=== PATIENT | male | born 1960 | race Caucasian/White ===

== ENCOUNTER 2021-10-08 23:30 | Emergency (ER) | payer BC, SELFPAY ==
--- NOTE | ~2021-10-08 | XR_ITS ---
EXAMINATION: XR chest 2V, XR shoulder RT min 2V DATE: 10/09/2021 00:37 INDICATION: Right shoulder and chest wall pain post fall down a flight of stairs TECHNIQUE: 1. PA and lateral views of the chest were obtained. 2. AP internally rotated, AP externally rotated, Grashey and transscapular Y views of the right shoul debbi were obtained. COMPARISON: None FINDINGS: Chest: The lungs are clear with no focal airspace opacities, pulmonary edema, pleural effusion or pneumothor ax. The cardiomediastinal silhouette is normal. Moderate thoracic spondylosis. Right shoulder: Comminuted extra-articular fracture of the lateral right clavicle. There is cephalad elevation of the site of the clavicular fracture resulting in 50 degree apex cephalad angulation of the the largest c lavicular fragment and several fragments comprising the lateral aspect of the clavicle. There are cou ple additional fracture fragments comprising the caudal cortex of the lateral clavicle at the site of attachment of the coracoclavicular ligament which remains nondisplaced relative to the coracoid proc ess. These are by approximately 2 cm from the donor site along the elevated lateral side of the main clavicular fragment. There is mild angulation of the articular surface of the lateral head of the clavicle relative to the acromion resulting from the displacement and angulation of the fractu re but without abnormal widening or francis subluxation of the joint space. No other fractures identifi ed. Glenohumeral joint is normal. IMPRESSION: 1. Displaced and angulated comminuted extra articular fracture of the lateral right clavicle. 2. No acute cardiopulmonary disease. Reviewed, dictated and finalized at location A. IMPRESSION: 1. Displaced and angulated comminuted extra articular fracture of the lateral r ight clavicle. 2. No acute cardiopulmonary disease.
--- NOTE | ~2021-10-08 | CT_ITS ---
EXAMINATION: CT BRAIN W/O DATE: 10/09/2021 00:53 INDICATION: Status post fall down flight of stairs. Head injury. TECHNIQUE: Computed tomography (CT) of the head was performed without intravenous contrast. The dose- length product was 681.00 mGy-cm. Automated exposure control and iterative reconstruction technique w ere employed. COMPARISON: No prior studies for comparison. FINDINGS: Normal brain parenchymal volume for age. Normal miranda-white differentiation. No acute intrac ranial hemorrhage, infarction, mass or mass effect. No ventriculomegaly or midline shift. Midline sagittal images demonstrate a normal corpus callosum, c raniovertebral junction and sella turcica. Basilar cisterns are patent. Paranasal sinuses and mastoids are pneumatized. No depressed skull fractures. Mild right frontal jayshree etal scalp swelling. IMPRESSION: 1. No acute intracranial abnormality. Reviewed, dictated and finalized at location A.
--- NOTE | ~2021-10-08 | CT_ITS ---
EXAMINATION: CT cervical spine wo con DATE: 10/09/2021 00:55 INDICATION: Unwitnessed fall. Neck pain. TECHNIQUE: Computed tomography (CT) of the cervical spine was performed without intravenous contrast. The dose-length product was 450 mGy-cm. Automated exposure control and iterative reconstruction tech nique were employed. COMPARISON: None FINDINGS: There is straightening of cervical lordosis, likely due to muscle spasm or positioning. The re is moderate degenerative disc disease at C5-6, C6-7 and C7-T1. No acute fracture, subluxation or d islocation. Vertebral body heights are maintained. No paraspinal soft tissue abnormality. Cranioverte bral junction is normal. No evidence for perched facet. There is moderate multilevel uncinate and fac et hypertrophy. Lung apices are normal. No significant paraspinal soft tissue abnormality. IMPRESSION: 1. No acute abnormality of the cervical spine. Reviewed, dictated and finalized at location A.
--- NOTE | 2021-10-08 23:40 | ED.GENADULT ---
HPI - General Adult General Chief complaint: Trauma Stated complaint: fell down a flight of stairs, rt side pain, head Time Seen by Provider: 10/08/21 23:33 History of Present Illness HPI narrative: 61-year-old male presenting to the emergency department for evaluation after having a fall down a flight of stairs. Patient states that he did have multiple glasses of wine over the course of the day. Patient was walking downstairs and stumbled causing the fall. Patient did strike his head. Patient denies any loss of consciousness. Patient is amnestic to the fall. Patient has been complaining of some right shoulder pain and some right-sided rib pain. Upon arrival to the emergency department patient is only complaining of headache and right shoulder pain. Patient does have a history of high blood pressure. Patient reports that a few weeks ago he did have a concussion and has been taking Aleve for that head injury. Related Data Allergies Allergy/AdvReac Type Severity Reaction Status Date / Time Sulfa (Sulfonamide AdvReac Unknown Verified 10/08/21 23:52 Antibiotics) Review of Systems Review of Systems: CONSTITUTIONAL: Denies fever, chills, or sweats. EYES: Denies visual changes, redness, or discharge. ENT: Denies rhinorrhea, congestion, sore throat, or otalgia. CARDIOVASCULAR: Did have some right-sided chest wall pain RESPIRATORY: Denies cough or dyspnea. GASTROINTESTINAL: Denies abdominal pain, nausea, vomiting, or diarrhea. GENITOURINARY: Denies dysuria or hematuria. SKIN: Denies rash or itching. MUSCULOSKELETAL: Complains of right shoulder pain NEUROLOGIC: Headache but denies any associated numbness or weakness. Exam Narrative: APPEARANCE: Well appearing, no pain, no distress, well-nourished. HEAD: normocephalic, atraumatic. Tenderness to the left side of scalp EYES: PERRLA/EOMI, conjunctivae clear. NOSE: Normal no drainage THROAT: Pharynx clear, no exudate. NECK: Supple. No adenopathy, no masses. RESPIRATORY: Airway patent, respirations nonlabored. Clear to auscultation bilaterally, no rales, rhonchi, wheezing. CARDIOVASCULAR: Regular rate and rhythm without murmurs rubs or gallops. No chest wall tenderness to palpation ABDOMINAL: Soft, nontender, nondistended, normal bowel sounds MUSCULOSKELETAL: Moves all extremities. Strength/ROM intact, No edema, No calf tenderness. Some right shoulder tenderness to palpation at AC joint. Normal range of motion of shoulder NEURO: Alert. Cranial nerves II through XII intact. Grossly intact. SKIN: Warm, dry. Normal Color Course Course Emergency Course: Initially a wrong x-ray was loaded up for chest and shoulder. Family had initially told that the x-ray was negative. Upon reading the patient's actual shoulder x-rays they were informed on his right clavicle fracture. No rib fractures were observed. On reexamination patient is more alert and appropriate. Patient continues to have no abdominal tenderness to palpation. Patient denies any complaints other than pain at the clavicle. Patient was able to ambulate at his baseline. Patient and family were comfortable with the plan for discharge and follow-up. Family is from [place] and they will follow-up with a orthopedic physician locally. All question concerns were addressed. Patient was well-appearing at time of discharge from the emergency department. Vital Signs Vital signs: Vital Signs Pulse Rate 77 10/08/21 23:43 Respiratory Rate 24 H 10/08/21 23:43 Blood Pressure 128/73 10/08/21 23:43 Pulse Oximetry 97 10/08/21 23:43 Oxygen Delivery Room Air 10/08/21 23:43 Pulse Rate 88 10/09/21 02:31 Respiratory Rate 18 10/09/21 02:31 Blood Pressure 133/76 10/09/21 02:31 Pulse Oximetry 97 10/09/21 02:31 Oxygen Delivery Room Air 10/08/21 23:43 Medical Decision Making Vital Signs Vital Signs: Vital Signs Pulse Rate 77 10/08/21 23:43 Respiratory Rate 24 H 10/08/21 23:43 Blood Pressure 128/
[2021-10-08 23:43] VITALS: BP 128/73; PULSE 77; RESP 24; O2SAT 97
[2021-10-08 23:50] VITALS: PULSE 81
[2021-10-09] MEDS: IBUPROFEN 600 MG TABLET PO (02:18)
[2021-10-09 02:31] VITALS: BP 133/76; PULSE 88; RESP 18; O2SAT 97
== END 2021-10-09 02:27 | disposition home or self-care (01) ==
PROVIDERS: Emergency Provider Emergency Medicine
DX: S42.031A Displaced fracture of lateral end of right clavicle, initial encounter for closed fracture (principal); S09.90XA Unspecified injury of head, initial encounter; W10.9XXA Fall (on) (from) unspecified stairs and steps, initial encounter
CPT/HCPCS: 70450; 71046; 72125; 73030; 99284; A4565; A9270